=== PATIENT | female | born 1970 | race Caucasian/White ===

== ENCOUNTER 2020-04-05 09:46 | Day surgery (SDC) | payer MEDICARE, OTHER ==
[~2020-04-05] VITALS: Ht 172.7 cm; Wt 91.2 kg
[~2020-04-05 09:46] MED LIST: ACYCLOVIR400 MG PO; AMLODIPINE BESY10 MG PO; ATORVASTATIN CA40 MG PO; BASAGLAR K100 UNIT/1 SUB-Q; CALCITRIOL0.25 MCG PO; CARVEDILOL25 MG PO; CLONIDINE HCL0.3 MG TD; COLACE100 MG PO; FUROSEMIDE80 MG PO; GABAPENTIN300 MG PO; GEMFIBROZIL600 MG; HYDRALAZINE HC100 MG PO; HYDROCHLOROTH12.5 MG PO; LOSARTAN POTASS50 MG PO; MEDROXYPROGESTE10 MG PO; NEXIUM20 MG PO; NOVOLOG100 UNITS/ SUB-Q; PANTOPRAZOLE SO40 MG PO; PREDNISONE5 MG PO; PREMPRO 0.45-11 EACH PO; REGLAN5 MG PO; SANDIMMUNE100 MG PO; SENNA8.6 MG PO; SERTRALINE HCL50 MG PO; ST. JOSEPH ASPI81 MG PO; TORSEMIDE20 MG PO; TRAMADOL HCL50 MG PO; TRAZODONE HCL50 MG PO; VITAMIN D325 MC1 PO
--- NOTE | 2020-04-05 14:08 | NUR ---
VANCOMYCIN STOPPED LINE FLUSHED WITH SALINE SOLUMEDROL GIVEN AND LINE FLUSHED WITH SALINE. VANCOMYCIN RESTARTED.
--- NOTE | 2020-04-05 14:09 | NUR ---
PT COMFORTABLE. IV PATENT.
--- NOTE | 2020-04-05 14:25 | NUR ---
HAS BEEN UP TO BR.
--- NOTE | 2020-04-05 15:22 | NUR ---
04/05/20 1522 Adriana Gannon 1509- PT ARRIVES TO PACU NONAROUSABLE TO NOXIOUS STIMULI WITH AN OPA IN PLACE. RESP EVEN AND UNLABORED. OXYGEN SAT HIGH 90'S TO 100% ON 6L VIA MASK. 1511- PT AROUSING ON HER OWN AND TRYING TO PULL OUT OPA. PT INSTRUCTED TO OPEN HER MOUTH TO REMOVE THE OPA. PT IS ABLE TO FOLLOW THIS COMMAND AND OPA REMOVED. 1514- DR. CARLOS NOTIFIED OF THE DRAINAGE ON PT'S DRESSING. PT HAS AN APPROXIMATELY 2 INCH CONFEDERATED [place] OF BLOOD ON HER DRESSING. DR. CARLOS INSTRUCTED TO HAVE ANOTHER LAYER OF KERLIX PLACED WITH AN MIRIAM WRAP. 1516- DRESSING REINFORCED WITH KERLIX AND MIRIAM WRAP WITH DORIS BUSTILLOS RN ASSISTANCE.
[2020-04-05] MEDS ORDERED: HYDROCODON-ACE1 EA10 PO (15:24)
[2020-04-05] MEDS ORDERED: TYLENOL EXTRA500 MG PO (15:25)
--- NOTE | 2020-04-05 15:52 | NUR ---
PT BG 241 ON HER MACHINE.
--- NOTE | 2020-04-05 17:30 | NUR ---
THIS AT 1630 PT BLOOD GLUCOSE 241 SHE HAS TAKEN 8UNITS ON HER PER HER USUAL ROUTINE. ATE TURKEY SANDWICH AND DRANK DIET SODA.
--- NOTE | 2020-04-06 22:00 | OR ---
[facility] [address], [place] [address] Signed DATE OF OPERATION: 04/05/2020 SURGEON: Phyllis Carlos MD PREOPERATIVE DIAGNOSES: 1. Severe cellulitis of right arm with progressive improvement, but with probable persistent abscess proximal right arm / low axilla. 2. History of renal transplant. POSTOPERATIVE DIAGNOSIS: Residual abscess in the proximal right medial arm and low axilla, multiple loculations and abscess fluid PROCEDURES: 1. Incision, drainage, and debridement, breakdown of loculations of right proximal arm abscess (chronic). 2. Debridement and placement of yellow vessel loop drains x2. ANESTHESIA: General LMA, Luis Venegas CRNA INDICATIONS FOR THE PROCEDURE: This 49-year-old white woman has a complex past history including renal transplant in 2017. She additionally has had coronary artery disease including myocardial infarction and stent placement in the past. She was seen by Dr. Levi Stock about 2 weeks ago for rather significant arm swelling and erythema on the right side, which she attributed to "spider bite." She has been treated as an outpatient with vancomycin on a daily basis for 14 days. There is now a confluence of firmness in the proximal right medial arm, not far from the axilla. Incision and drainage was undertaken by Dr. Stock in [facility] confirming MRSA as the underlying pathogen. As there is persistent induration and a dense balsa wood like mass in this area. Referral was made for consideration of further operative drainage and debridement. The patient understands the risks of bleeding, infection, nerve injury, arterial or venous injury, and other unforeseen complications related to this procedure and wished to proceed. FINDINGS: Indeed, a firm mass was noted about the size of my hand in the proximal right upper medial arm, not far from the axilla itself. Interrogation of the previous drainage sites showed un-drained purulent material interspersed with trabeculated fat and induration. Trabeculations were broken down quite aggressively without known injury to Electronically Signed By: PHYLLIS CARLOS MD 04/06/20 2200 PATIENT NAME: ALEX HUNT OPERATIVE REPORT DATE OF : 70 REPORT #: [id number] PHYSICIAN: PHYLLIS CARLOS MD PCP: KING TODD MD REPORT IS CONFIDENTIAL AND NOT TO BE RELEASED WITHOUT AUTHORIZATION [facility] [address], [place] [address] Signed surrounding structures. Two counter incisions were made proximally and distally and yellow vessel loops were placed and copious irrigation undertaken. The soft tissue abscess areas appears to be well drained at this time and fatty soft tissue debrided well . DESCRIPTION OF PROCEDURE: The patient was brought to the operating room, given a general anesthetic by LMA technique. She received 1 g of vancomycin intravenously, mindful of her underlying renal transplant in the past. The position of the abnormality was such that a full arm preparation and axillary preparation was undertaken with a chlorhexidine solution and draped sterilely. A small wick of Nu-Gauze was removed from the central portion of the wound. There were two wound defects adjacent to each other in this area. Using a hemostat, dissection of the indurated area was undertaken with blunt dissection, breaking down trabeculations and gross purulent fluid. Photographs were taken. The trabeculations were copiously taken down and necrotic fat was debrided and removed. This extended inferiorly and superiorly towards the axilla, and once the loculations were fully broken down, yellow vessel loops were passed through a counter incisions proximally and distally. The yellow vessel loops allowed for elevation of the overlying skin and copious irrigation with bulb syringe of sterile saline solution. To affect good hemostasis, a quarter-inch Nu-Gauze was packed into each cavity as appropriate. A Kerlix dressing was applied, and she was ultimately extubated and transported to the recovery room after requisite waiting time related to the COVID pandemic and OR protocol. Sponge, needle, and instrument counts reported as correct x3. Blood loss was about 10-20 mL in aggregate. Phyllis Carlos MD JM/MODL /[id number] Copies: ~ Electronically Signed By: PHYLLIS CARLOS MD 04/06/20 2200 PATIENT NAME: ALEX HUNT OPERATIVE REPORT DATE OF : 70 REPORT #: [id number] PHYSICIAN: PHYLLIS CARLOS MD PCP: KING TODD MD REPORT IS CONFIDENTIAL AND NOT TO BE RELEASED WITHOUT AUTHORIZATION
== END 2020-04-05 17:05 | disposition home or self-care (01) ==
LOC: OPS 09:46 → DS 12:00 → OPS 12:00
PROVIDERS: Surgery
PROC: 0H9BXZZ Drainage of Right Upper Arm Skin, External Approach (ICD-10-PCS; principal; 2020-04-05 12:00)
DX: L02.411 Cutaneous abscess of right axilla (principal); L03.113 Cellulitis of right upper limb; I25.10 Atherosclerotic heart disease of native coronary artery without angina pectoris; I25.2 Old myocardial infarction; E11.9 Type 2 diabetes mellitus without complications; I10 Essential (primary) hypertension; K21.9 Gastro-esophageal reflux disease without esophagitis; A49.02 Methicillin resistant Staphylococcus aureus infection, unspecified site; F17.220 Nicotine dependence, chewing tobacco, uncomplicated; Z88.2 Allergy status to sulfonamides; Z95.5 Presence of coronary angioplasty implant and graft; Z79.899 Other long term (current) drug therapy; Z94.0 Kidney transplant status; Z79.82 Long term (current) use of aspirin; Z79.4 Long term (current) use of insulin
CPT/HCPCS: J1100; J1720; J1815; J2001; J2405; J2704; J3010; J3370; J7060